=== PATIENT | female | born 1995 | race Caucasian/White ===

== ENCOUNTER 2021-08-30 15:19 | Inpatient (IN) | payer OTHER ==
[~2021-08-30] VITALS: Ht 177.8 cm; Wt 84.4 kg
[2021-08-30 15:29] VITALS: BP 143/92
[2021-08-30 22:09] LABS: ABSOLUTE LYMPHOCYTES 1.2 thou/uL (0.8-5.3); ABSOLUTE MONOCYTES 0.8 thou/uL (0.0-1.2); ABSOLUTE NEUTROPHILS 5.4 thou/uL (1.6-8.1); BASOPHILS 0.3 %; EOSINOPHILS 0.4 %; HEMATOCRIT 34.3 % (37.0-47.0); HEMOGLOBIN 11.3 gm/dL (12.0-15.0); LYMPHOCYTES 16.8 %; MCH 27.9 pg (26.0-34.0); MCV 84.7 fL (80.0-100.0); MONOCYTES 10.1 %; MPV 7.9 fl. (7.2-11.1); NUCLEATED RBCS 0 /100WBC; PLATELET COUNT* 278 thou/uL (150-400); POLYS 72.4 %; RBC 4.05 mil/uL (4.20-5.00); RDW-CV 14.5 % (10.5-14.5); WBC 7.4 thou/uL (4.0-11.0)
[2021-08-30 22:20] LABS: CREATININE 0.7 mg/dL (0.6-1.3); POTASSIUM 4.2 mmol/L (3.5-5.1)
[2021-08-30 22:25] LABS: ALBUMIN 3.6 g/dL (3.4-5.0); TOTAL BILIRUBIN 0.8 mg/dL (<0.1-1.0); TOTAL PROTEIN 7.2 g/dL (6.4-8.2)
[2021-08-31] VITALS (8 sets, daily range): BP systolic 97–133; BP diastolic 52–93
[2021-08-31 01:39] LABS: URINE BILIRUBIN NEGATIVE (Negative); URINE BLOOD NEGATIVE (Negative); URINE CLARITY CLEAR; URINE COLOR YELLOW; URINE GLUCOSE-RANDOM NEGATIVE (Negative); URINE KETONES NEGATIVE (Negative); URINE LEUKOCYTES 1+ (Negative); URINE NITRITE NEGATIVE (Negative); URINE PROTEIN NEGATIVE (Negative)
[2021-08-31 01:40] LABS: AMP/METHAMP POSITIVE (Negative); BARBITURATES Negative (Negative); BENZODIAZEPINES Negative (Negative); COCAINE Negative (Negative); METHADONE Negative (Negative); OPIATES POSITIVE (Negative); PCP Negative (Negative); THC Negative (Negative)
[2021-08-31 02:11] LABS: CASTS None Seen /LPF (None Seen); SQUAMOUS >10 Many /LPF (0-3)
[2021-08-31 02:12] LABS: BACTERIA 1-9 Few /HPF (None Seen); CRYSTALS None Seen /LPF (None Seen); URINE RBC None Seen /HPF (0-2); URINE WBC 0-5 Rare /HPF (0-5)
--- NOTE | 2021-08-31 20:05 | NUR ---
SITTING UP IN BED WATCHING TV AND APPLYING MAKEUP. LEFT FOOT DRESSING DRY/INTACT. RIGHT FOREARM RED AND EDEMATOUS AND TENDER TO TOUCH. CALL LIGHT WITHIN REACH. CRUTCHES WITHIN REACH.
[2021-09-01] VITALS: BP 127/84
[2021-09-01 04:06] LABS: HEMATOCRIT 33.6 % (37.0-47.0); MCH 27.7 pg (26.0-34.0); MCHC 32.8 g/dL (28.0-37.0); MCV 84.3 fL (80.0-100.0); MPV 8.3 fl. (7.2-11.1); RBC 3.99 mil/uL (4.20-5.00); RDW-CV 14.3 % (10.5-14.5); WBC 5.9 thou/uL (4.0-11.0)
[2021-09-01 04:32] LABS: CALCIUM 8.6 mg/dL (8.5-10.1); CREATININE 0.5 mg/dL (0.6-1.3); POTASSIUM 3.8 mmol/L (3.5-5.1)
--- NOTE | 2021-09-01 04:54 | NUR ---
PATIENT RESTED ON/OFF. HAS AN ORDER FOR PICC LINE PLACEMENT. CURRENTLY HAS NO IV ACCESS. COMPRESSOR STATION CHIEF ENGINEER DR. LOU NOTIFIED AND HE PLACED AN ORDER FOR PICC LINE TO BE PLACED.
[2021-09-01 08:00] VITALS: BP 121/64
--- NOTE | 2021-09-01 15:11 | NUR ---
Attempted to assess patient x2 - but pt not in room.
[2021-09-01 16:00] VITALS: BP 128/83
[2021-09-01 20:00] VITALS: BP 124/78
[2021-09-02] VITALS: BP 131/90
[2021-09-02 04:24] LABS: HEMATOCRIT 29.9 % (37.0-47.0); HEMOGLOBIN 10.2 gm/dL (12.0-15.0); MCH 28.5 pg (26.0-34.0); MCV 83.8 fL (80.0-100.0); MPV 7.8 fl. (7.2-11.1); RBC 3.57 mil/uL (4.20-5.00); RDW-CV 13.9 % (10.5-14.5)
[2021-09-02 04:29] LABS: CALCIUM 8.4 mg/dL (8.5-10.1); CREATININE 0.9 mg/dL (0.6-1.3); POTASSIUM 3.4 mmol/L (3.5-5.1)
--- NOTE | 2021-09-02 05:30 | NUR ---
ASSUMED PT CARE AT 1930. PT ALERT AND ORIENTED X4, POLITE AND COOPERATIVE WITH CARES. PT TO WEAR BOOT TO LEFT FOOT AT ALL TIMES. PICC TO LEFT UPPER ARM FLUSHES AND DRAWS. PT BAG DROPPED OFF IN ER, AFTER PT RECEIVED SAME SHE BECAME ERRATIC SCREAMING AND ROLLING ON FLOOR, EVENTUALLY CALMED DOWN WITH ASSIST OF CHARGE NURSE. PT STATED SHE HAD BEEN OFF HER MEDS FOR SEVERAL MONTHS AND SUFFERED FROM BI POLAR AND PTSD. PT ACTED APPROPRIATELY FOR THE REMAINDER OF THE SHIFT. LABS DRAWN WITHOUT INCIDENT. PT SLEEPING NOW. HOURLY ROUNDING IN PROGRESS, WILL CONTINUE TO MONITOR.
[2021-09-02 09:00] VITALS: BP 124/67
[2021-09-02] MEDS ORDERED: BACTRIM DS TAB1 EAC1 PO (10:58)
[2021-09-02 11:44] VITALS: BP 124/67
--- NOTE | 2021-09-02 12:05 | NUR ---
PATIENT NOTED TO BE IN ROOM WALKING AROUND UNSTEADLY. PATIENT WAS TALKING TO HERSELF. VITALS STABLE. HORTICULTURAL THERAPIST NOTIFIED THIS INCIDENT WAS REPORTED TO HAVE ALSO HAPPENED AFTER PATIENTS FAMILY BROUGHT IN HER BAGS. PER DR. BENNETT DC PICC LINE AND DISCHARGE HOME. PICC LINE DC'D AND PATIENT VERBALIZES UNDERSTANDING OF PAPERWORK AND SCRIPT SENT TO PHARMACY. PATIENT TAKEN OUT VIA WHEELCHAIR WITH ALL BELONGINGS.
== END 2021-09-02 12:00 | disposition home or self-care (01) | DRG 563 ==
LOC: M.ERS 15:19 → M.TBA-ER 21:21 → M.2W 08-31 17:01
PROVIDERS: Internal Medicine; Physician Assistant; ADMIT Internal Medicine; ATTEND Internal Medicine
PROC: 05HC33Z Insertion of Infusion Device into Left Basilic Vein, Percutaneous Approach (ICD-10-PCS; principal; 2021-08-30)
DX: S92.352A Displaced fracture of fifth metatarsal bone, left foot, initial encounter for closed fracture (principal); L03.113 Cellulitis of right upper limb; Z20.822 Contact with and (suspected) exposure to COVID-19; Z88.8 Allergy status to other drugs, medicaments and biological substances; W01.0XXA Fall on same level from slipping, tripping and stumbling without subsequent striking against object, initial encounter; Y93.89 Activity, other specified; Y92.89 Other specified places as the place of occurrence of the external cause; Y99.8 Other external cause status